=== PATIENT | female | born 1960 | race Caucasian/White ===

== ENCOUNTER 2023-03-11 09:29 | Outpatient (CLI) | payer BC, SELFPAY | END 2023-03-11 09:30 | disposition home or self-care (01) | PROVIDERS: PCP Nurse Practitioner Family; Visit Provider Nurse Practitioner Family | DX: Z01.818 Encounter for other preprocedural examination (principal) | CPT/HCPCS: 80048; 85025 ==

== ENCOUNTER 2023-08-16 09:43 | Outpatient (CLI) | payer BC, SELFPAY ==
--- NOTE | 2023-08-16 10:00 | CRLHL7_ITS ---
For Patients: As a result of the Century Cures Act, medical imaging exams and procedure reports are released immediately into your electronic medical record. You may view this report before your referring provider. If you have questions, please contact your health care provider. HISTORY: Foot pain after falling injury. FINDINGS: The foot was studied in the axial, coronal and sagittal planes. There has been a previous arthrodesis of the articulation between the medial cuneiform and 1st metatarsal internally fixated with 2 screws. This appears solidly fused. No findings for acute type fracture or dislocation. Alignment of the Lisfranc articulation is within normal limits. There is a 2 part appearance to the medial or tibial sesamoid but the fragments appears smoothly marginated and this probably is secondary to old injury or developmental variation. Moderate degenerative change of the 1st MTP joint is noted. Soft tissue swelling is seen in the subcutaneous fat throughout the foot. IMPRESSION: Negative study for acute type fracture. Please note that all CT scans at this facility use dose modulation, iterative reconstruction, and/or weight-based dosing when appropriate to reduce radiation dose to as low as reasonably achievable. Dictated by Sim Harden MD @ 08/17/2023 2:16:32 PM (Electronically Signed)
== END 2023-08-16 09:44 | disposition home or self-care (01) ==
PROVIDERS: PCP Nurse Practitioner Family; Visit Provider Orthopaedic Surgery
DX: M79.673 Pain in unspecified foot (principal)
CPT/HCPCS: 73700

== ENCOUNTER 2023-12-02 10:58 | Outpatient (CLI) | payer BC, SELFPAY | END 2023-12-02 10:59 | disposition home or self-care (01) | PROVIDERS: PCP Nurse Practitioner Family; Visit Provider Nurse Practitioner Family | DX: E78.5 Hyperlipidemia, unspecified (principal); K75.9 Inflammatory liver disease, unspecified; Z13.0 Encounter for screening for diseases of the blood and blood-forming organs and certain disorders involving the immune mechanism; Z13.29 Encounter for screening for other suspected endocrine disorder | CPT/HCPCS: 80053; 80061; 84439; 84443; 85025 ==

== ENCOUNTER 2024-01-08 13:17 | Outpatient (CLI) | payer BC, SELFPAY ==
--- NOTE | 2024-01-08 13:30 | XR_ITS ---
Patient: RUPA MASON Facility:?[facility] Patient ID:?[id number] Site Patient ID:?[id number]. Site :?1960 Study:?DEXA-Bone Density -01/08/2024 3:29:33 PM Ordering Physician:HOMERO Final Report: DXA BONE MINERAL DENSITY STUDY Reason for exam: Screening for osteoporosis. Current height (in): 65.0. Weight (lb): 182.0. Menopause age: 57. Ethnicity: White. 1. Have you had a previous hip or vertebral fracture? No. 2. Have you had any fractures during your adult life which did not result from significant trauma (e.g., auto accident)? Yes. 3. Did either of your parents have a hip fracture? No. 4. Do you smoke? No. 5. Have you ever taken Glucocorticoids? No. 6. Do you have rheumatoid arthritis? No. 7. Do you have secondary osteoporosis? No. 8. Do you drink 3 or more alcoholic drinks per day? No. 9. Are you being treated for osteoporosis? No. 10. Have you ever taken any of the following medications: Actonel, Evista, Fosamax, Miacalcin, Reclast, Boniva, Forteo, HRT (i.e. estrogen/hormone therapy), Protelos, Prolia, Vitamin D, Calcium, other ? please specify. ANSWER: Yes, vitamin D, calcium. 11. Do you have any of the following medical conditions: Anorexia or bulimia, asthma or emphysema, end stage renal disease, hyperparathyroidism, any seizure disorders, cancer, inflammatory bowel diseases, hysterectomy, other ? please specify. ANSWER: No. 12. What was your maximum height (inches)? 67. 13. Do you perform weight bearing exercise regularly? No. 14. Do you regularly consume dairy products? Yes. 15. Do you drink caffeinated beverages? Yes. 16. At what age did your period start? 13. 17. Are you premenopausal? No. 18. How many full term pregnancies have you had? 4. 19. Have you ever missed your period for more than 6 months in a row (not including or menopause)? No. TECHNIQUE: Bone mineral density study was performed using the [employer]. FINDINGS: The results of the study expressed as bone mineral density (BMD) are as follows: Lumbar spine L1 to L4: BMD: 1.291 g/cm2. T-score: 2.2. Z-score: 3.8. Neck Left: BMD: 0.928 g/cm2. T-score: 0.7. Z-score: 2.1. Total Left: BMD: 1.098 g/cm2. T-score: 1.3. Z-score: 2.3. Radius Left 33%: BMD: 0.696 g/cm2. T-score: 0.0. Z-score: 1.5. IMPRESSION: Normal bone density. Michael Shelton M.D. Diagnostic Radiologist [email or web address] LINWOOD/linnea / be/Dictated by: Michael Shelton MD @ 01/09/2024 8:20:00 AM Signed by:?Michael Shelton MD @01/10/2024 11:26:44 AM (Electronic Signature)
== END 2024-01-08 13:18 | disposition home or self-care (01) ==
LOC: RAD 13:17
PROVIDERS: PCP Nurse Practitioner Family; Visit Provider Nurse Practitioner Family
DX: Z13.820 Encounter for screening for osteoporosis (principal)
CPT/HCPCS: 77080

== ENCOUNTER 2024-02-14 08:52 | Outpatient (CLI) | payer MEDICAID, SELFPAY | END 2024-02-14 08:53 | disposition home or self-care (01) | LOC: NFLDREF 03-05 05:26 | PROVIDERS: PCP Nurse Practitioner Family; Referring Provider Nurse Practitioner Family; Visit Provider Nurse Practitioner Family | DX: N39.0 Urinary tract infection, site not specified (principal) | CPT/HCPCS: 81001; 87086; 87186 ==

== ENCOUNTER 2024-03-03 14:37 | Outpatient (CLI) | payer OTHER, SELFPAY | END 2024-03-03 14:38 | disposition home or self-care (01) | PROVIDERS: PCP Nurse Practitioner Family; Visit Provider Nurse Practitioner Family | DX: E78.5 Hyperlipidemia, unspecified (principal) | CPT/HCPCS: 80061 ==

== ENCOUNTER 2024-07-16 09:58 | Outpatient (CLI) | payer OTHER, SELFPAY ==
--- NOTE | 2024-07-16 10:15 | MR_ITS ---
[address] [address] Phone:?[phone] Fax:?[phone] Referring Physician Information: Ric Veliz [id number] [facility] [address] Phone:?[phone] Fax:?[phone] Patient:?Xena Arriola D.O.B:?1960 Sex:?Female Phone:?[phone] [facility] MRN:?[id number] Exam Date:?07/16/2024 EXAM: MRI of the LEFT HIP, without contrast CLINICAL HISTORY: Ongoing left hip pain. Evaluate for left hip arthritis and greater trochanteric bursitis. COMPARISONS: Plain radiographs 06/29/2024 and MRI 10/09/2016. TECHNICAL: MR sequences of the left hip: Axials: PD FS Axial oblique: PD Coronals: PD, T2 Coronal pelvis: T1 and STIR Sagittals: PD and T2 CONTRAST: None SEDATION: None FINDINGS: Pelvis osseous structures: Sacrum: No fracture or destructive osseous lesion is seen of the imaged portions of the sacrum. Sacroiliac joints: No convincing evidence of sacroiliitis of the imaged portions of the sacroiliac joints. Pubic rami: Unremarkable. Symphysis pubis: There are moderate chronic arthritic changes, similar compared to previous MRI 10/09/2016. Labrum: There is extensive ill-defined tearing of the superior, posterior, anterosuperior, and anterior portions of the left hip labrum, moderately to markedly progressed compared to previous MRI 10/09/2016. Hip joint: Small to moderate left hip joint effusion. Extensive near full-thickness and full-thickness chondral loss over the superior portions of the acetabulum and femoral head, moderately to markedly progressed compared to previous MRI 10/09/2016, and slight subchondral edema-like signal within the superolateral portion of the left acetabulum, new compared to previous MRI 10/09/2016. Proximal femur: No fracture, osseous stress injury, avascular necrosis, or suspicious bone marrow signal abnormality is seen. Left femoral head lateral asphericity results in a femoral alpha angle of over 100 degrees at the 12 o'clock position superiorly measured on coronal series 5 image 12. Acetabulum: Coverage: Left lateral center edge (CE) angle measures approximately 26? correcting for coronal pelvic tilt, midline coronal series 5 image 12. Ligamentum teres: Unremarkable. Myotendinous structures: Gluteus abductors: The gluteus minimus and medius tendons are unremarkable. There is mild left greater trochanteric bursitis, new compared to previous MRI 10/09/2016. Rectus abdominis-adductor longus aponeurosis, adductors, and rectus abdominis: Unremarkable. Hamstrings: There is low-grade partial tear of the left conjoined hamstring tendon at the ischial tuberosity attachment, similar compared to previous MRI 10/09/2016. Flexors: The iliopsoas and rectus femoris tendons are intact. Quadratus femoris muscle: Unremarkable. Piriformis muscle: Unremarkable. Gluteal aponeurotic fascia and IT band: Unremarkable. Pelvic soft tissues: Numerous uterine fibroids are again noted. Surgical changes status post total right hip arthroplasty are not optimally evaluated by this dedicated MRI of the left hip. IMPRESSION: 1. Substantial left hip osteoarthritic changes with extensive near full- thickness and full-thickness chondral loss over the superior portions of the acetabulum and femoral head, slight subchondral edema-like signal within the superolateral portion of the acetabulum, and extensive ill-defined tearing of most of the left hip labrum, moderately to markedly progressed compared to previous MRI 10/09/2016. 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 2. Mild left greater trochanteric bursitis, new compared to previous MRI 10/09/2016. 3. Small to moderate left hip joint effusion. 4. Low-grade partial tear of the left conjoined hamstring tendon at the ischial tuberosity attachment, similar compared to previous MRI 10/09/2016 and of uncertain/doubtful clinical significance. 5. Numerous uterine fibroids, also seen on previous MRI 10/09/2016. 6. Moderate chronic arthritic changes of the symphysis pubis, similar compared to previous MRI 10/09/2016. 7. No fracture or osseous stress injury of the left hip. RCB Electronically signed on 07/16/2024 8:55:[address] M.D.
== END 2024-07-16 09:59 | disposition home or self-care (01) ==
LOC: MRI 09:58
PROVIDERS: PCP Nurse Practitioner Family; Visit Provider Physician Assistant
DX: M25.552 Pain in left hip (principal); M16.12 Unilateral primary osteoarthritis, left hip; M70.62 Trochanteric bursitis, left hip; S76.012A Strain of muscle, fascia and tendon of left hip, initial encounter; D25.9 Leiomyoma of uterus, unspecified
CPT/HCPCS: 73721

== ENCOUNTER 2024-10-12 12:55 | Outpatient (CLI) | payer OTHER, SELFPAY | END 2024-10-12 12:56 | disposition home or self-care (01) | LOC: MAMMO 12:55 | PROVIDERS: PCP Nurse Practitioner Family; Visit Provider Nurse Practitioner Family | DX: Z12.31 Encounter for screening mammogram for malignant neoplasm of breast (principal) | CPT/HCPCS: 77063; 77067 ==

== ENCOUNTER 2024-10-20 15:06 | Outpatient (CLI) | payer OTHER, SELFPAY | END 2024-10-20 15:07 | disposition home or self-care (01) | PROVIDERS: PCP Nurse Practitioner Family; Visit Provider Nurse Practitioner Family | DX: R53.83 Other fatigue (principal); R00.2 Palpitations; R63.5 Abnormal weight gain; R42 Dizziness and giddiness; Z86.79 Personal history of other diseases of the circulatory system | CPT/HCPCS: 82306; 84439; 84443; 84480; 85025; 86376 ==

== ENCOUNTER 2024-11-24 13:49 | Outpatient (CLI) | payer OTHER, SELFPAY ==
[2024-11-24 14:43] VITALS: BP 133/76; PULSE 78; RESP 18
--- NOTE | 2024-11-24 15:14 | W.PM.STED ---
Stress Test Note Date Date Seen: 11/24/24 Date of test: 11/24/24 Providers Primary care provider: Kandace Guardado Stress test physician: Kieran Wilkins Stress Test Note Stress test ordered: Stress Echo Indication for test: Chest pain Results discussion: This pleasant lady presents for the above test after discussion the risks benefits and side effects she would like to proceed, pretest EKG shows normal sinus rhythm with a ventricular rate of 64, blood pressure 121/68. No acute ST wave changes are noted. Standard Sonu protocol is employed over a time course of 7 minutes and 3 seconds, she did a metabolic equivalent of a 0.5 Mets with a maximum heart rate of 137 which is 103% of the maximum. Test is terminated because of fulfillment of protocol and fatigue. During this test there is no appreciable ST wave changes suggestive of ischemia. There is loss artifact which impaired the reading of this test. This also compromise a sensitivity. Impression: Negative electrographic portion of stress echo, artifact did compromise sensitivity. Conditioning was felt to be good Follow up suggested: Await echo read by Cardiology, clinical correlation with this will be needed, patient left this testing facility in good condition.
== END 2024-11-24 14:49 | disposition home or self-care (01) ==
LOC: STRESS 13:49
PROVIDERS: PCP Nurse Practitioner Family; Visit Provider Internal Medicine Cardiovascular Disease
DX: R07.9 Chest pain, unspecified (principal); R00.2 Palpitations
CPT/HCPCS: 93016; 93325; 93351

== ENCOUNTER 2024-12-21 08:30 | Outpatient (CLI) | payer OTHER, SELFPAY | END 2024-12-21 08:31 | disposition home or self-care (01) | PROVIDERS: PCP Nurse Practitioner Family; Visit Provider Nurse Practitioner Family | DX: R10.13 Epigastric pain (principal); E78.5 Hyperlipidemia, unspecified; R53.83 Other fatigue; E55.9 Vitamin D deficiency, unspecified; D64.9 Anemia, unspecified; Z13.21 Encounter for screening for nutritional disorder; Z13.228 Encounter for screening for other metabolic disorders; Z13.0 Encounter for screening for diseases of the blood and blood-forming organs and certain disorders involving the immune mechanism | CPT/HCPCS: 80053; 80061; 82150; 82306; 83690; 85025 ==

== ENCOUNTER 2024-12-22 08:31 | Outpatient (CLI) | payer OTHER, SELFPAY | END 2024-12-22 08:32 | disposition home or self-care (01) | LOC: KYNREF 11:49 | PROVIDERS: PCP Nurse Practitioner Family; Visit Provider Nurse Practitioner Family | DX: R10.13 Epigastric pain (principal) | CPT/HCPCS: 87338 ==

== ENCOUNTER 2024-12-28 07:14 | Outpatient (CLI) | payer OTHER, SELFPAY ==
--- NOTE | 2024-12-28 08:22 | P.ANES_ITS ---
Anesthesia Charges Start Date/Time Anesthesia Start Date: 12/28/24 Anesthesia Start Time: 07:58 Stop Date/Time Anesthesia Stop Date: 12/28/24 Anesthesia Stop Time: 08:18 Coding CPT Codes CPT Codes: ANES UPR GI NDSC PX NOS - 58318 ([id number]) P2 - PATIENT W/MILD SYST DISEASE, QX - ELECTRIC RANGE ASSEMBLER SVC W/ MD MED DIRECTION, QK - HEAVY EQUIPMENT ENGINE MECHANIC 2-4 CNCRNT ANES PROC
--- NOTE | 2024-12-28 08:22 | P.ANES_ITS ---
Anesthesia Charges Start Date/Time Anesthesia Start Date: 12/28/24 Anesthesia Start Time: 07:58 Stop Date/Time Anesthesia Stop Date: 12/28/24 Anesthesia Stop Time: 08:18 Coding CPT Codes CPT Codes: ANES UPR GI NDSC PX NOS - 32052 ([id number]) P2 - PATIENT W/MILD SYST DISEASE, QK - REFORESTATION WORKER 2-4 CNCRNT ANES PROC, QX - BRIM EDGE TRIMMER SVC W/ MD MED DIRECTION
--- NOTE | 2024-12-28 08:22 | W.ANESCHARGE ---
Anesthesia Charges Start Date/Time Anesthesia Start Date: 12/28/24 Anesthesia Start Time: 07:58 Stop Date/Time Anesthesia Stop Date: 12/28/24 Anesthesia Stop Time: 08:18 Coding CPT Codes CPT Codes: ANES UPR GI NDSC PX NOS - 51212 ([id number]) P2 - PATIENT W/MILD SYST DISEASE, QX - MARINE ELECTRONICS REPAIRER SVC W/ MD MED DIRECTION, QK - SHIPYARD LABORER 2-4 CNCRNT ANES PROC
--- NOTE | 2024-12-28 08:22 | W.ANESCHARGE ---
Anesthesia Charges Start Date/Time Anesthesia Start Date: 12/28/24 Anesthesia Start Time: 07:58 Stop Date/Time Anesthesia Stop Date: 12/28/24 Anesthesia Stop Time: 08:18 Coding CPT Codes CPT Codes: ANES UPR GI NDSC PX NOS - 38925 ([id number]) P2 - PATIENT W/MILD SYST DISEASE, QK - ASSISTIVE TECHNOLOGY TRAINER 2-4 CNCRNT ANES PROC, QX - TOY ASSEMBLER SVC W/ MD MED DIRECTION
== END 2024-12-28 07:15 | disposition home or self-care (01) ==
LOC: OP CLINIC 07:15
PROVIDERS: PCP Nurse Practitioner Family; Visit Provider Internal Medicine
DX: K21.9 Gastro-esophageal reflux disease without esophagitis (principal)
CPT/HCPCS: 00731; 43239; 88305; J2704; J3490

== ENCOUNTER 2025-02-16 09:39 | Outpatient (CLI) | payer OTHER, SELFPAY | END 2025-02-16 09:40 | disposition home or self-care (01) | PROVIDERS: PCP Nurse Practitioner Family; Visit Provider Nurse Practitioner Family | DX: M25.571 Pain in right ankle and joints of right foot (principal) | CPT/HCPCS: 84550; 85651; 86140; 86618 ==